=== PATIENT | male | born 1955 | race Caucasian/White ===

== ENCOUNTER 2016-10-30 10:28 | Day surgery (SDC) | payer MEDICARE ==
[~2016-10-30] VITALS: Ht 182.9 cm; Wt 133.8 kg
[~2016-10-30 10:28] MED LIST: AMLODIPINE10 M2 PO; APAP/OXYCODONE1 TA1 PO; CARAFATE1 GM PO; CIPRO 500MG TA500 MG PO; DIAZEPAM5 MG PO; FLEXERIL10 MG PO; GABAPENTIN100 M1 PO; GABAPENTIN300 M1 PO; HYDROCODONE-APA1 TA2 PO; LISINOPRIL/HYDR1 TAB PO; LISINOPRIL20 MG PO; MOBIC15 MG PO; MS CONTIN30 MG PO; NEXIUM40 MG PO; PRAVACHOL40 M1 PO; PRAVASTATIN40 MG PO; SYNTHROID 0.1M0.1 MG PO; SYNTHROID0.2 MG PO
[2016-10-30 10:42] VITALS: BP 141/88
[2016-10-30 11:12] VITALS: BP 141/88
[2016-10-30 11:14] VITALS: BP 141/88
--- NOTE | 2016-10-30 11:21 | Procedure Note ---
Procedure detail Date of procedure: 10/30/16 Anesthesiologist: Quirino mendiola CRNA Complications: None Pre-procedure diagnosis: Degenerative osteoporosis bilateral knees. Post-procedure diagnosis: Same. Indications for procedure: Very pleasant 60-year-old white male comes our pain clinic for chronic pain management with intrathecal pain pump. Patient doing very well with his current settings. Patient not complaining of any low back pain or radiculopathy symptoms. Patient's main complaint today is bilateral knee pain when walking. Patient has degenerative osteoporosis bilateral knees. We have injected his knees in the past with 6 months of relief. Procedure detail: Details of the procedure were 20 to the patient. Patient was taken to the procedure room where noninvasive monitors were placed including noninvasive blood pressure cuff as well as pulse oximeter. Patient was placed in the sitting position with his feet flat on the ground. Knees flexed at 90 degrees. The RIGHT knee was prepped with chlorhexidine as a cleansing solution. The lateral inferior border of the patella was palpated. The knee joint was accessed with ease at this site. 2 mL of 0.25 percent Marcaine +2 mL of 1 percent lidocaine and 40 mg of Depo-Medrol were injected. Patient are the procedure without difficulty. There were no complications. The same procedure was carried out in the LEFT knee without difficulty or complications. Plan and disposition: Patient was revived 10 minutes post procedure. Patient reports 100 percent improved terms of his bilateral knee pain. He'll continue to follow up with us in the pain clinic for pain pump management at 1121
[2016-10-30 11:30] VITALS: BP 149/80
[2017-01-11] MEDS ORDERED: GABAPENTIN100 MG PO (13:54)
[2017-01-11] MEDS ORDERED: LEVOTHYROXIN0.175 MG PO (13:55)
== END 2016-10-30 11:30 ==
LOC: PM 10:28
PROC: 3E0U33Z Introduction of Anti-inflammatory into Joints, Percutaneous Approach (ICD-10-PCS; principal; 2016-10-30)
PROC: 3E0U3BZ Introduction of Anesthetic Agent into Joints, Percutaneous Approach (ICD-10-PCS; 2016-10-30)
DX: M81.8 Other osteoporosis without current pathological fracture (principal)
CPT/HCPCS: J1030

== ENCOUNTER 2016-12-25 14:25 | Day surgery (SDC) | payer MEDICARE ==
[~2016-12-25] VITALS: Ht 182.9 cm; Wt 122.5 kg
[2016-12-25 14:44] VITALS: BP 149/91
[2016-12-25 14:57] VITALS: BP 149/91
[2016-12-25 14:59] VITALS: BP 149/91
--- NOTE | 2016-12-25 15:02 | Procedure Note ---
Procedure detail Date of procedure: 12/25/16 Anesthesiologist: Quirino mendiola CRNA Complications: None Pre-procedure diagnosis: Degenerative osteoporosis bilateral knees Post-procedure diagnosis: Same. Indications for procedure: Very pleasant 61-year-old white male we've been treating her pain clinic quite some time for chronic low back pain secondary to degenerative disease lumbar spine multiple levels lumbar recopy symptoms. And post laminotomy syndrome. We are medically managing him with an intrathecal pain pump which is doing quite well this time. However, he presents to our procedure clinic today for bilateral intra-articular knee injections secondary to degenerative osteoarthritis. Procedure detail: Details of the procedure expected to the patient. The consent form was signed. The patient was taken to the procedure area and placed in the sitting position. The area over bilateral knees was cleansed using chlorhexidine as a cleansing solution. Markers placed on the LEFT knee at the lateral distal border of the patella. The skin and subcu tissue was anesthetized using 1 percent lidocaine and 25-gauge needle. Using a 22-gauge needle the LEFT knee joint was accessed with ease and 3 mL of 0.25 percent Marcaine +3 mL of 1 percent lidocaine and 49 g of Depo-Medrol was injected. The same procedure was carried out in the RIGHT knee in the same fashion. The procedures without difficulty. Plan and disposition: Patient was reevaluated 10 minutes post procedure. He reports 90 percent improvement terms of his bilateral knee pain. Continue to follow up with some pain clinic for further evaluation. at 1502
[2016-12-25 15:09] VITALS: BP 142/93
--- OUTSIDE RECORDS SUMMARY | 2016-12-25 18:04 | External Medical Summary Rpt ---
Author Author , Organization [employer] Address Unknown Phone Unavailable Purpose Continuity of Care Document - through 2016
--- OUTSIDE RECORDS SUMMARY | 2016-12-25 18:04 | External Medical Summary Rpt ---
Author Author , Organization [employer] Address Unknown Phone Unavailable Purpose Continuity of Care Document - 03-22-2016 through 2016
--- OUTSIDE RECORDS SUMMARY | 2016-12-25 18:04 | External Medical Summary Rpt ---
Demographics Preferred Language Faroese Marital Status Unknown Presybeterian Affiliation Unknown Race Unknown Ethnic Group Unknown Author Author , Organization [employer] Address Unknown Phone Unavailable Purpose Continuity of Care Document - through 2016 Immunization No patient found.
--- OUTSIDE RECORDS SUMMARY | 2016-12-25 18:04 | External Medical Summary Rpt ---
Author Author [employer] Heidi, [employer] Organization [employer] Address Unknown Phone Unavailable Results [id number] Observa Value Referen Units Interpr Notes Date tion ce etation Range TEXT [place] No No No No Apr 19 DIAGNOS informa informa informa informa 2016 IS McDowel tion in tion in tion in tion in 2:31 PM BATTERY l source source source source HealthE data data data data [facility] [id number] [facility] JOSE GUADALUPE lester [phone] Patient : Sex: Age: Unit Number: JANETH SADLER 60 [id number] mich Watts an: Status: Date of : Account Number: ALEXANDRE SANDERS MD [facility] 956 [id number] rolando Watts an: Locatio n: Room Number: Date of Exam:NO NSTAFF, OTHER EOR 6REASON FOR EXAM: PAIN PUMP PLACEME NTREASO N FOR VISIT: INTRATH ECAL PAIN PUMP INSERTI ONACCES RICO # [id number] __Fluor oscopy was provide d for Dr. Omar hwang . There is nocharg e for this dictati on. This is for hospita l billing purpose s only.Im pressio n:Fluor oscopy provide d.Site 1 ____Ele ctronic ally signed by: RAMEZ CRUMP ate: 6Time: 14:31__ ___CHARO Ayala ELIZONDO MDDicta meme: 6 1431Sig milo : 6 1431 CARMPAIN Observa Value Referen Units Interpr Notes Date tion ce etation Range TEXT [place] No No No No Mar 22 DIAGNOS informa informa informa informa 2016 IS McDowel tion in tion in tion in tion in 2:46 PM BATTERY l source source source source HealthE data data data data [facility] [id number] [place] [phone] Patient : Sex: Age: Unit Number: JANETH SADLER 60 [id number] mich Watts an: Status: Date of : Account Number: BRITTNY NUNN D.O. [facility] 956 [id number] rolando Watts an: Locatio n: Room Number: Date of Exam:NO NSTAFF, OTHER EPAINCT R 6REASON FOR EXAM: PUMP TRAILRE ASON FOR VISIT: BACK PAIN/NE W [id number] 2ACCESS ION # [id number] __Fluor oscopy less than one hourInd ication : Pain clinic. Finding s: Fluoros copy was provide d for the operati ng room.Th ere is no charge for this dictati on.Impr ession: Fluoros copy was provide d for the operati ng room.Th ere is no charge for this dictati on.Site 2 ____Ele ctronic ally signed by: EBONIE ORLANDO ate: 6Time: 14:46__ ___EBONIE GUIDO MDDicta meme: 6 1446Sig milo : 6 1446 PAIN MGMT DRUG SCREEN Observa Value Referen Units Interpr Notes Date tion ce etation Range AMPHETA NEGATIV NEGATIV No Normal No Zaid 16 MINES,U E E informa informa 2016 RINE tion in tion in 10:29 source source AM data data HEROIN, NEGATIV NEGATIV No Normal No Zaid 16 URINE E E informa informa 2016 tion in tion in 10:29 source source AM data data BARBITU NEGATIV NEGATIV No Normal No Zaid 16 RATES,U E E informa informa 2016 RINE tion in tion in 10:29 source source AM data data BENZODI NEGATIV NEGATIV No Normal No Zaid 16 AZEPINE E E informa informa 2016 S,URINE tion in tion in 10:29 source source AM data data COCAINE NEGATIV NEGATIV No Normal No Zaid 16 ,URINE E E informa informa 2016 tion in tion in 10:29 source source AM data data METHADO NEGATIV NEGATIV No Normal No Zaid 16 NE,URIN E E informa informa 2016 E tion in tion in 10:29 source source AM data data OPIATES NEGATIV NEGATIV No Normal No Zaid 16 ,URINE E E informa informa 2016 tion in tion in 10:29 source source AM data data THC NEGATIV NEGATIV No Normal No Zaid 16 (MARIJU E E informa informa 2016 PELON),UR tion in tion in 10:29 INE source source AM data data OXYCODO NEGATIV NEGATIV No Normal No Mar 16 NE,URIN E E informa informa 2016 E tion in tion in 10:29 source source AM data data BUPRENO NEGATIV NEGATIV No Normal No Mar 16 RPHINE, E E informa informa 2016 URINE tion in tion in 10:29 source source AM data data TRICYCL NEGATIV NEGATIV No Normal No Mar 16 IC E E informa informa 2016 ANTIDEP tion in tion in 10:29 RESSANT source source AM S,UR data data
--- OUTSIDE RECORDS SUMMARY | 2016-12-25 18:04 | External Medical Summary Rpt ---
Author Author [employer] Heidi, [employer] Organization [employer] Address Unknown Phone Unavailable Results [id number] Observa Value Referen Units Interpr Notes Date tion ce etation Range TEXT [place] No No No No Apr 19 DIAGNOS informa informa informa informa 2016 IS [place]owel tion in tion in tion in tion in 2:31 PM BATTERY l source source source source HealthE data data data data [facility] [id number] [facility] JOSE GUADALUPE lester [phone] Patient : Sex: Age: Unit Number: JANETH SADLER 60 [id number] mich Watts an: Status: Date of : Account Number: ALEXANDRE SANDERS MD [facility] 956 [id number] rolando Watts an: Locatio n: Room Number: Date of Exam:NO NSTAFF, OTHER EOR 6REASON FOR EXAM: PAIN PUMP PLACEME NTREASO N FOR VISIT: INTRATH ECAL PAIN PUMP INSERTI ONACCES RICO # [id number] __Fluor oscopy was provide d [...] Notes Date tion ce etation Range TEXT [place] No No No No Mar 22 DIAGNOS informa informa informa informa 2016 IS McDowel tion in tion in tion in tion in 2:46 PM BATTERY l source source source source HealthE data data data data [facility] [id number] [place] [phone] Patient : Sex: Age: Unit Number: JANETH SADLER 60 [id number] mich Watts an: Status: Date of : Account Number: BRITTNY NUNN D.O. [facility] [place] 956 [id number] rolando Watts an: Locatio n: Room Number: Date of Exam:NO NSTAFF, OTHER EPAINCT R 6REASON FOR EXAM: PUMP TRAILRE ASON FOR VISIT: BACK PAIN/NE W [id number] 2ACCESS ION # [id number] __Fluor oscopy less than one [...]
--- OUTSIDE RECORDS SUMMARY | 2016-12-25 18:04 | External Medical Summary Rpt ---
Demographics Preferred Language Hungarian Marital Status Unknown Hinduism Affiliation Unknown Race Unknown Ethnic Group Unknown Author Author , Organization [employer] Address Unknown Phone Unavailable Purpose Continuity of Care Document - through 2016 Immunization No patient found.
[2017-01-11] MEDS ORDERED: GABAPENTIN100 MG PO (13:54)
[2017-01-11] MEDS ORDERED: LEVOTHYROXIN0.175 MG PO (13:55)
== END 2016-12-25 15:09 | disposition home or self-care (01) ==
LOC: PM 14:25
PROC: 3E0U33Z Introduction of Anti-inflammatory into Joints, Percutaneous Approach (ICD-10-PCS; principal; 2016-12-25)
PROC: 3E0U3BZ Introduction of Anesthetic Agent into Joints, Percutaneous Approach (ICD-10-PCS; 2016-12-25)
DX: M17.0 Bilateral primary osteoarthritis of knee (principal)
CPT/HCPCS: J1030

== ENCOUNTER → 2017-06-11 | Outpatient (CLI) | payer MEDICARE, MEDICAID ==
[~2017-06-11] MED LIST changes: +GABAPENTIN100 MG PO; +LEVOTHYROXIN0.175 MG PO
[2017-06-11 15:39] LABS: HEMOGLOBIN 13.8 g/dL (14.1-18.0); LYMPH # 2.1 K/mm3 (0.7-4.5); LYMPH % 26.6 % (10-50)
[2017-06-11 16:16] LABS: BUN 17 mg/dL (7-18)
[2017-06-11 16:20] LABS: GFR (ESTIMATED) 68 ML/MIN (>60)
== END ==
LOC: LAB 15:27
PROVIDERS: Physician Assistant
DX: E03.9 Hypothyroidism, unspecified (principal)